=== PATIENT | female | born 1940 | race Asian ===

== ENCOUNTER → 2018-09-28 | Day surgery (SDC) | payer OTHER, MEDICARE ==
--- NOTE | 2018-09-29 15:06 | PATH ---
Cytology Non-Gynecological Report Patient Name: VINNY VILLALBA Med. Rec. #: [id number] /Age/Gender: 1940 (Age: 78) / F Account: [id number] Location: RADIOLOGY INTER Taken: 09/28/2018 Received: 09/28/2018 Reported: 09/29/2018 Physicians: Josh Muñoz M.D. Specimen(s) Received THYROID, RIGHT, FINE NEEDLE ASPIRATION Clinical History Right thyroid nodule, 2.21 x 2.04 x 2.10 cm Final Diagnosis THYROID, RIGHT, FINE NEEDLE ASPIRATION: SATISFACTORY FOR EVALUATION. B[place]ES[place] CLASS II: BENIGN. CYTOLOGIC FINDINGS ARE CONSISTENT WITH A BENIGN FOLLICULAR NODULE. SMALL FOLLICULAR CELLS IN A BACKGROUND OF ABUNDANT THIN COLLOID, RARE MACROPHAGES, AND RARE LYMPHOCYTES PRESENT. Electronically Signed Emma Lockhart M.D. Gross Description Received are eight direct smears, four of which are air-dried and Diff-Quik stained, and four of which are alcohol fixed and Pap stained. Also received is 20 ml of bloody formalin from which one cellblock is prepared.
== END | disposition home or self-care (01) ==
LOC: JRADIR 09:46
PROVIDERS: ATTEND Internal Medicine
PROC: 0G9H3ZX Drainage of Right Thyroid Gland Lobe, Percutaneous Approach, Diagnostic (ICD-10-PCS; principal; 2018-09-28)
DX: E04.1 Nontoxic single thyroid nodule (principal)
CPT/HCPCS: 10005; 76942; 88173; 88305-TC